=== PATIENT | male | born 1975 | race Caucasian/White ===

== ENCOUNTER → 2023-07-28 10:17 | Outpatient (CLI) | payer BC, SELFPAY ==
[2023-07-28 10:35] LABS: Add Manual Diff / Slide Review NO; Basophils Absolute Auto 100 /uL (0-100); Eosinophils Absolute Auto 300 /uL (0-450); Eosinophils Percent Auto 3.4 % (2-4); Hematocrit 44.7 % (41-53); Hemoglobin 15.2 g/dL (13.5-17.5); Lymphocytes Absolute Auto 1700 /uL (1100-4500); Lymphocytes Percent Auto 22.6 % (25-40); Mean Corpuscular Hemoglobin 29.8 PG (26-34); Mean Corpuscular Volume 87.6 fL (80-100); Monocytes Absolute Auto 600 /uL (0-900); Monocytes Percent Auto 7.6 % (3-14); Neutrophils Absolute Auto 5000 /uL (1500-7000); Neutrophils Percent Auto 65.4 % (50-75); Platelet Count 251 X10^3/uL (150-400); Red Cell Distribution Width 14.2 % (11.6-14.8); White Blood Cell Count 7.7 X10^3/uL (4.5-11.0)
[2023-07-28 10:53] LABS: Alanine Aminotransferase 32 IU/L (<50); Albumin 4.5 g/dL (3.5-5.0); Albumin Globulin Ratio 1.4 (1.0-2.8); Alkaline Phosphatase 71 U/L (38-126); Aspartate Aminotransferase 29 IU/L (17-59); BUN Creatinine Ratio 18.6 (6-22); Bilirubin Total 0.6 mg/dL (0.2-1.3); Blood Urea Nitrogen 19 mg/dL (9-20); Calcium 9.1 mg/dL (8.4-10.2); Carbon Dioxide 28 mmol/L (22-32); Chloride 103 mmol/L (98-107); Cholesterol 204 mg/dL (140-199); Creatine Kinase 64 U/L (55-170); Estimated Glomerular Filt Rate > 60 mL/min (>60); Globulin 3.2 g/dL (1.7-4.1); Glucose 108 mg/dL (70-100); HDL Cholesterol 34 mg/dL (40-60); HEMOLYSIS < 15 (0-50); LDL Cholesterol Calculated 150 mg/dL (<100); Potassium 3.7 mmol/L (3.4-5.1); Sodium 139 mmol/L (137-145); Total Protein 7.7 g/dL (6.3-8.2); Triglycerides 102 mg/dL (35-150)
[2023-07-28 11:04] LABS: Troponin I 0.037 ng/mL (0.01-0.034)
== END ==
PROVIDERS: PCP Student in an Organized Health Care Education/Training Program; Referring Provider Student in an Organized Health Care Education/Training Program; Visit Provider Student in an Organized Health Care Education/Training Program
DX: I10 Essential (primary) hypertension (principal); Z13.220 Encounter for screening for lipoid disorders; Z13.1 Encounter for screening for diabetes mellitus
CPT/HCPCS: 36415; 80053; 80061; 82550; 83036; 84484; 85025

== ENCOUNTER → 2023-10-21 10:37 | Outpatient (CLI) | payer BC, SELFPAY ==
--- NOTE | 2023-10-21 10:38 | DI.RAD.S_ITS ---
PROCEDURE: XR CHEST 2V INDICATIONS: cough TECHNIQUE: 2 views of the chest were acquired. COMPARISON: None. FINDINGS: Surgical changes and devices: None. Lungs and pleura: Lungs are clear. No pleural effusions or pneumothorax. Mediastinum: Mediastinal contours are normal. Heart size is normal. Bones and chest wall: No suspicious bony abnormalities. Soft tissues appear unremarkable. IMPRESSION: No acute cardiopulmonary process. Dictated by: Ophelia Gonzalez M.D. on 10/21/2023 at 11:33 Approved by: Ophelia Gonzalez M.D. on 10/21/2023 at 11:34
== END ==
PROVIDERS: PCP Family Medicine; Referring Provider Family Medicine; Visit Provider Family Medicine
DX: R05.8 Other specified cough (principal)
CPT/HCPCS: 71046

== ENCOUNTER → 2023-10-23 12:49 | Outpatient (CLI) | payer BC, SELFPAY ==
--- NOTE | 2023-10-23 12:50 | DI.RAD.S_ITS ---
PROCEDURE: XR SHOULDER LT MIN 2V INDICATIONS: Shoulder pain TECHNIQUE: 3 views of the shoulder were acquired. COMPARISON: None. FINDINGS: Bones: No fractures or dislocations. Mild acromioclavicular joint osteoarthritic changes are seen. No suspicious bony lesions. Visualized ribs appear intact. Soft tissues: No suspicious soft tissue calcifications. IMPRESSION: Mild acromioclavicular joint osteoarthritis. No shoulder fracture or dislocation. No gross soft tissue abnormalities. Dictated by: Rolo Srinivasan M.D. on 10/23/2023 at 13:44 Approved by: Rolo Srinivasan M.D. on 10/23/2023 at 13:49
== END ==
PROVIDERS: PCP Family Medicine; Referring Provider Family Medicine; Visit Provider Family Medicine
DX: M19.012 Primary osteoarthritis, left shoulder (principal); M25.512 Pain in left shoulder
CPT/HCPCS: 73030

== ENCOUNTER → 2024-07-01 11:55 | Outpatient (CLI) | payer BC, SELFPAY ==
[2024-07-01 14:13] LABS: Hemoglobin A1C% w Est Avg Glu 6.2 % (4.0-6.0)
[2024-07-01 14:23] LABS: Alanine Aminotransferase 35 IU/L (<50); Albumin 4.3 g/dL (3.5-5.0); Albumin Globulin Ratio 1.4 (1.0-2.8); Alkaline Phosphatase 66 U/L (38-126); Aspartate Aminotransferase 33 IU/L (17-59); BUN Creatinine Ratio 18.9 (6-22); Bilirubin Total 0.4 mg/dL (0.2-1.3); Blood Urea Nitrogen 20 mg/dL (9-20); Calcium 9.1 mg/dL (8.4-10.2); Carbon Dioxide 22 mmol/L (22-32); Chloride 105 mmol/L (98-107); Estimated Glomerular Filt Rate > 60 mL/min (>60); Glucose 151 mg/dL (70-100); HEMOLYSIS < 15 (0-50); Sodium 137 mmol/L (137-145); Total Protein 7.3 g/dL (6.3-8.2)
--- NOTE | 2024-07-01 19:10 | DI.MRI.S_ITS ---
PROCEDURE: MR SHOULDER LT WO CON INDICATIONS: Left Shoulder Pain TECHNIQUE: Noncontrast oblique coronal T2 fast spin echo with fat saturation, oblique sagittal T1 spin echo and T2 fast spin echo with fat saturation, axial T1 spin echo and T2 fast spin echo with fat saturation through the shoulder. COMPARISON: [facility], CR, XR SHOULDER LT MIN 2V, 10/23/2023, 13:03. FINDINGS: Image quality: Excellent. Bones: Intense marrow edema is present at the distal clavicle with small possible osseous subarticular erosions (8/14). Mild marrow edema is present at the subarticular acromion (8/15). There is no identifiable T1 hypointense fracture line. There is no other evidence of acute fracture or dislocation. Acromioclavicular joint: There is mild pericapsular edema with otherwise preservation of the joint capsule. There is a type 2 acromion with a small anteriorly directed subacromial spur (9/13). Glenohumeral joint: There is no significant osteoarthritis. There is no significant joint effusion. Labrum: There is absence of the superior labrum with a thickened middle glenohumeral ligament, compatible with a Gerardo complex, an anatomic labral variant. Cartilage: There is no significant articular cartilage defect. Subacromial-subdeltoid bursa: There is a trace amount of fluid in the subacromial-subdeltoid bursa. Rotator cuff: The supraspinatus tendon is intact. The infraspinatus tendon is intact. The subscapularis tendon is intact. The teres minor tendon is intact. Long head of biceps tendon: The long head of the biceps tendon is present within the bicipital groove and intact. Musculature: There is mild teres minor atrophy without a compressive etiology in the quadrilateral space. Mild intramuscular edema is present within the anterior bundle of the supraspinatus muscle fibers at the myotendinous junction (8/11). Inferior glenohumeral ligaments/Axillary pouch: The axillary pouch is normal in thickness and signal. Coracoclavicular and coracoacromial ligaments: The coracoclavicular and coracoacromial ligaments are normal. Other: No other acute abnormality. IMPRESSION: 1. Predominant finding of marrow edema at the distal clavicle and subarticular acromion with possible osseous erosions. The differential diagnosis would include a microtrabecular fracture of the acromion versus distal clavicular osteolysis. Please correlate with history. 2. Mild strain involving the anterior bundle of the supraspinatus. 3. Mild teres minor atrophy without a compressive etiology in the quadrilateral space. Dictated by: Elan Lester M.D. on 07/05/2024 at 14:49 Approved by: Elan Lester M.D. on 07/05/2024 at 15:24
== END ==
PROVIDERS: PCP Family Medicine; Referring Provider Family Medicine; Visit Provider Family Medicine
DX: M25.512 Pain in left shoulder (principal); I10 Essential (primary) hypertension; S46.012A Strain of muscle(s) and tendon(s) of the rotator cuff of left shoulder, initial encounter; R73.03 Prediabetes
CPT/HCPCS: 36415; 73221; 80053; 83036

== ENCOUNTER → 2024-07-25 09:29 | Outpatient (CLI) | payer BC, SELFPAY ==
--- NOTE | 2024-07-25 09:29 | DI.MG.S_ITS ---
MALE BILATERAL DIGITAL DIAGNOSTIC MAMMOGRAM 3D/2D: 07/25/2024 CLINICAL: Bilateral Tenderness. No prior exams were available for comparison. The breasts are almost entirely fatty (category a/<25% glandular tissue). There is gynecomastia in both breasts that correlates with clinical concern and palpable area. No significant masses, calcifications, or other findings are seen in either breast. IMPRESSION: BENIGN There is no mammographic evidence of malignancy. Bilateral gynecomastia which is benign. Recommend clinical follow up for persistent or worsening symptoms, or development of any clinically suspicious findings. Findings and recommendations were conveyed to the patient during today's evaluation. This exam was interpreted at Station ID: [id number]. NOTE: For mammograms, a report in lay terms will be sent to the patient. Approximately 15% of breast malignancies will not be visualized mammographically. In the management of a palpable breast mass, a negative mammogram must not discourage biopsy of a clinically suspicious lesion. Electronically Signed By: Sae Junior M.D. at/:07/25/2024 10:17:11 letter sent: Male Normal Exam ACR BI-RADS Category 2: Benign
== END ==
PROVIDERS: PCP Family Medicine; Referring Provider Family Medicine; Visit Provider Family Medicine
DX: N62 Hypertrophy of breast (principal)
CPT/HCPCS: 77066; G0279

== ENCOUNTER → 2024-10-19 10:00 | Outpatient (CLI) | payer BC, SELFPAY | LOC: LAB 10:01 | PROVIDERS: PCP Family Medicine; Visit Provider Family Medicine | DX: J02.9 Acute pharyngitis, unspecified (principal) | CPT/HCPCS: 87070; 87077; 87147 ==

== ENCOUNTER → 2024-11-16 09:06 | Outpatient (CLI) | payer BC, SELFPAY ==
--- NOTE | 2024-11-16 09:08 | DI.MRI.S_ITS ---
PROCEDURE: MR HEAD/BRAIN WO/W CON INDICATIONS: INCREASED IN SEVERITY OF H/O/RO STRUCTURAL PATH TECHNIQUE: Noncontrast axial T1 spin echo, axial T2 fast spin echo, sagittal and axial FLAIR, coronal T2 fast spin echo, axial gradient echo, axial diffusion and ADC through the brain. After the administration of contrast, axial and coronal and sagittal T1 spin echo with fat saturation through the brain. COMPARISON: None. FINDINGS: Image quality: Excellent. CSF spaces: Basal cisterns are patent. No extra-axial fluid collections. Ventricles are normal in size and shape. Brain: No midline shift. No intracranial bleeds or masses. No abnormal intracranial enhancement. There is mild cerebral volume loss for age. Multiple foci of increased T2 signal in the periventricular and subcortical white matter tracks. Several of the periventricular white matter lesions have a linear orientation perpendicular to long axis of the lateral ventricles concerning for demyelinating process. The brainstem appears normal. Diffusion-weighted images demonstrate no acute infarct. Chronic infarcts involving the right putamen and left subinsular white matter. Hemosiderin associated with the right basal ganglia and left subinsular white matter chronic infarcts compatible with hemorrhagic transformation. Small chronic lacunar infarcts involving the left hernandez radiata. Scattered punctate foci of susceptibility artifact in the cerebral hemispheres, the left cerebellar hemisphere, the christopher in the thalami. Normal intravascular flow voids are present. Dural sinuses demonstrate normal postcontrast enhancement. Skull and face: Calvarial marrow is normal in signal. Orbits appear normal. Sinuses: Mucous retention cyst or polyps noted in the bilateral maxillary sinuses. The mastoids appear clear. IMPRESSION: No acute intracranial disease process. Diffuse volume loss with multiple periventricular and subcortical white matter foci of increased T2 signal with several of the lesions demonstrating linear orientation perpendicular to the lateral ventricles. Finding is suspicious for demyelinating process including multiple sclerosis. Correlate with clinical laboratory data. 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 Punctate foci of susceptibility artifact involving the bilateral cerebral hemispheres, the left cerebellar hemisphere, christopher and bilateral thalami consistent with chronic micro bleeds that could be secondary to hypertension, amyloid angiopathy or vasculitis. No suspicious postcontrast enhancement. Dictated by: Gracie Carcamo MD, PhD on 11/16/2024 at 12:31 Approved by: Gracie Carcamo MD, PhD on 11/16/2024 at 12:42
== END ==
PROVIDERS: PCP Family Medicine; Referring Provider Nurse Practitioner; Visit Provider Nurse Practitioner
DX: R51.9 Headache, unspecified (principal); R90.89 Other abnormal findings on diagnostic imaging of central nervous system
CPT/HCPCS: 70553; A9579

== ENCOUNTER → 2025-02-08 14:52 | Outpatient (CLI) | payer BC, SELFPAY | PROVIDERS: PCP Family Medicine; Visit Provider Chiropractor | DX: K42.9 Umbilical hernia without obstruction or gangrene (principal) | CPT/HCPCS: 87070; 87075; 87077; 87147; 87205 ==

== ENCOUNTER → 2025-05-10 12:17 | Outpatient (CLI) | payer BC, SELFPAY | PROVIDERS: PCP Family Medicine; Visit Provider Physician Assistant | DX: J02.9 Acute pharyngitis, unspecified (principal) | CPT/HCPCS: 87070 ==